=== PATIENT | female | born 1935 | race Caucasian/White ===

== ENCOUNTER 2020-06-14 17:14 | Observation (INO) | payer MEDICARE ==
--- NOTE | 2020-06-14 17:45 | RAD ---
RADIOGRAPH CHEST 1 VIEW: DATE: 06/14/2020 HISTORY: 85-year-old female with chest pain FINDINGS: There are no airspace densities, pulmonary edema, pneumothorax, or cardiomegaly. The lateral costophr enic angles are sharp. IMPRESSION: No acute cardiopulmonary findings.
[2020-06-14 17:55] LABS: #Eosinphils 0.1 thou/uL (0.0-0.7); #Lymphocytes 1.2 thou/uL (1.20-3.40); #Monocytes 0.9 thou/uL (0.11-0.59); #Neutrophils 6.8 thou/uL (1.40-6.50); %Basophils 0.5 % (0.0-1.0); %Lymphocytes 12.9 % (21.0-51.0); %Monocytes 10.4 % (0.0-10.0); %Neutrophils 75.2 % (42.0-75.0); Hemoglobin 11.6 g/dL (12.0-16.0); Mean Corpuscular HGB CONC 33.6 g/dL (32.0-36.0); Mean Corpuscular Hemoglobin 35.2 pg (27.0-31.0); Mean Platelet Volume 8.2 fL (7.4-10.4); Platelet Count 237 thou/uL (130-400); RBC Distribution Width 11.6 % (11.5-14.5)
[2020-06-14 18:16] LABS: ALT (SGPT) 86 U/L (8-55); AST (SGOT) 62 U/L (5-34); Albumin 4.1 g/dL (3.4-4.8); Alkaline Phosphatase 186 U/L (40-110); Anion Gap 16 mmol/L (10-20); BUN (Urea Nitrogen) 39 mg/dL (9.8-20.1); Bilirubin, Total 0.6 mg/dL (0.2-1.2); CK (CPK) 153 U/L (29-168); Calc. Creatinine Clearance 0 mL/min (70-130); Calcium 9.6 mg/dL (7.8-10.44); Carbon Dioxide 24 mmol/L (23-31); Chloride 107 mmol/L (98-107); Globulin 3.2 g/dL (2.4-3.5); Glucose 89 mg/dL (83-110); Lipase 111 U/L (8-78); Potassium 3.3 mmol/L (3.5-5.1); Protein, Total 7.3 g/dL (5.8-8.1); Sodium 144 mmol/L (136-145)
[2020-06-14 18:38] LABS: CKMB 1.8 ng/mL (0-6.6)
--- NOTE | 2020-06-14 19:07 | PDOC.FPRHP ---
- History of Present Illness Chief Complaint: chest pain History of Present Illness: Pt is a 85 yo F with PMH of dementia, CAD, HTN who presents to the ED from [facility] for CP. History is limited given the fact that patient is demented and A&Ox1 at baseline. She states she had CP this morning and "that it was not that bad." And she is "doing quite alright now". She denies any associated symptoms but did tell EMS that she had pain all over her body. Denies SILVEIRA, vision changes, SOB, abdominal pain, edema, fevers. ED Course: ASA 325mg Trop .074 EKG NSR, Neg for ST changes CXR neg - Allergies/Adverse Reactions Allergies Allergy/AdvReac Type Severity Reaction Status Date / Time No Known Drug Allergies Allergy Unverified 06/14/20 22:17 - History PMHx: Dementia, CAD, HTN PSHx: unknown FHx: unknown Social: unknown - Review of Systems ROS unobtainable: due to mental status (ROS negative, although questionable answers given demented state) - Vital signs BP: 158/53 HR: 72 RR: 16 Tmax: 98.2 Pox: 96% on RA Wt: 77kg - Physical Exam Constitutional: NAD HEENT: normocephalic and atraumatic, PERRLA, EOMI Neck: supple Heart: RRR, normal S1/S2, other (trace edema b/l) Lungs: CTAB, no respiratory distress Abdomen: soft, non-tender, bowel sounds present Musculoskeletal: normal tone, ROM grossly normal Neurological: no focal deficit Skin: capillary refill <2 seconds, no jaundice -Skin: bruising on abdomen 2/2 Lovenox injections -Psychiatric: A&Ox0 FMR H&P: Results - Labs Result Diagrams: 06/15/20 03:57 06/15/20 03:57 Lab results: WBC 9.0 thou/uL (4.8-10.8) 06/14/20 17:44 Hgb 11.6 g/dL (12.0-16.0) L 06/14/20 17:44 Hct 34.6 % (36.0-47.0) L 06/14/20 17:44 MCV 105.0 fL (78.0-98.0) H 06/14/20 17:44 Plt Count 237 thou/uL (130-400) 06/14/20 17:44 Neutrophils % 75.2 % (42.0-75.0) H 06/14/20 17:44 Sodium 144 mmol/L (136-145) 06/14/20 17:44 Potassium 3.3 mmol/L (3.5-5.1) L 06/14/20 17:44 Chloride 107 mmol/L (98-107) 06/14/20 17:44 Carbon Dioxide 24 mmol/L (23-31) 06/14/20 17:44 BUN 39 mg/dL (9.8-20.1) H 06/14/20 17:44 Creatinine 1.48 mg/dL (0.6-1.1) H 06/14/20 17:44 Glucose 89 mg/dL (83-110) 06/14/20 17:44 Calcium 9.6 mg/dL (7.8-10.44) 06/14/20 17:44 Total Bilirubin 0.6 mg/dL (0.2-1.2) 06/14/20 17:44 AST 62 U/L (5-34) H 06/14/20 17:44 ALT 86 U/L (8-55) H 06/14/20 17:44 Alkaline Phosphatase 186 U/L (40-110) H 06/14/20 17:44 Creatine Kinase 153 U/L (29-168) 06/14/20 17:44 CK-MB (CK-2) 1.8 ng/mL (0-6.6) 06/14/20 17:44 Serum Total Protein 7.3 g/dL (5.8-8.1) 06/14/20 17:44 Albumin 4.1 g/dL (3.4-4.8) 06/14/20 17:44 Lipase 111 U/L (8-78) H 06/14/20 17:44 - EKG Interpretation EKG: NSR, negative for ST changes FMR H&P: A/P - Plan Chest pain ACS rule out -patient with reports of CP at [facility] earlier today although history is blurry -history of CAD, but no history found suggestive of previous [place] or TIA/stroke -Troponin indeterminate in ED to .074, continue to trend -EKG was NSR with no evidence of ST changes, CXR neg -will discuss with patient's family in AM their desires for patient care and if they would want to pursue further testing such as echo, stress, risk stratification labs given patient's poor prognosis with dementia -continue with medical management -Nitro PRN CAD -aware, continue home meds Macrocytic Anemia -MCV >100, Hgb 11.6 -follow up folate/B12 Elevated Cr -SUMA vs CKD, unsure given no past labs to compare to -will give gentle fluids as patient is NPO -follow up CMP in morning, urine studies Elevated Lipase -aware, no abdominal pain or clinical symptoms c/w pancreatitis at this time -follow up AM labs Elevated LFTs -aware, no abdominal pain -follow up AM labs Dementia -aware, continue home meds HTN -aware, continue home meds Dispo: admit to tele, obs. anticipated LOS <48 hours. Call patient's family in morning Code: FULL as per advance directive on paperwork from [place] Fluids: LR @ 75mL/hr Diet: NPO pending possible cardiac workup dependent on trended trops DVT ppx: home Lovenox PCP Roz Attending: Dominic ASTORGA H&P: Upper Level - Plan Date/Time: 06/14/201906 ITj, , have evaluated this patient and agree with findings/plan as outlined by post graduate intern resident. Pertinent changes/additions are listed here. This is an 85 yo female with a pmh of Alzeihmer dementia, HTN, CAD who presents to the ER from the [facility] with a cc of chest pain. She is pleasantly demented at this time and is unsure as to why she is here. ROS is grossly negative with the caveat that she is AAOx0. Objective: Vitals: BP 167/51, HR 76, RR 15, Temp 98.2, SpO2 95% on ra, Wt 77kg. NAD, MMM, no JVD, heart is RRR with no murmurs, there is pain to palpation of the left upper chest wall, lungs are CTAB, Abdomen has bruising consistent with lovenox injections, BS+, Trace non-pitting edema in bilateral extremities. A/P ACS r/o Trop 0.074, will trend, CXR WNL, EKG shows NSR without ST changes, likely medical management after tele obs overnight. Elevated lipase of 111, will repeat in the AM, no abdominal pain consistent with pancreatitis. SUMA vs CKD IIIb will provide gentle hydration. Mild LFT elevation. Please see post graduate intern note for further information and management of chronic conditions. Addendum - Attending - Attending Attestation Date/Time: 06/15/20 1011 I personally evaluated the patient and discussed the management with Dr. Lisa on 06/14. I agree with the History, Examination, Assessment and Plan documented above with any addition or exceptions noted below. Patient with absolute 0 complaints or memory of complaints on my evaluation. Her ECG is unremarkable and her TnI is stable. Will defer stress as we need to discuss goals of care with the family in the morning.
[2020-06-14] MEDS ORDERED: Aspirin Chewable 81 MG TAB ONE (19:13)
[2020-06-14 21:54] LABS: Troponin I 0.067 ng/mL (< 0.028)
[2020-06-14] MEDS ORDERED: Nitroglycerin 0.4 MG TAB (25 Tab Bottle) SL PRN (22:00)
[2020-06-14] MEDS ORDERED: Acetaminophen 325 MG TAB PO PRN (22:00)
[2020-06-14] MEDS ORDERED: Ondansetron PF 4 MG/2 ML Vial IVP PRN (22:00)
[2020-06-14] MEDS ORDERED: Potassium Chloride 20 MEQ TAB PO SCH (22:30)
[2020-06-14] MEDS ORDERED: Lactated Ringer's 1,000 ML IV SCH (22:30)
[2020-06-14] MEDS ORDERED: Potassium Chloride 20 MEQ TAB ONE (22:40)
[2020-06-14] MEDS ORDERED: Famotidine 20 MG TAB PO PRN (23:14)
[2020-06-14] MEDS ORDERED: Donepezil HCl 10 MG TAB PO SCH (23:30)
[2020-06-15 01:10] LABS: Troponin I 0.083 ng/mL (< 0.028)
[2020-06-15 02:58] LABS: SARS-CoV-2 PCR by NAA Not Detected (NotDetected)
[2020-06-15 04:16] LABS: #Eosinphils 0.2 thou/uL (0.0-0.7); #Lymphocytes 1.4 thou/uL (1.20-3.40); #Monocytes 0.9 thou/uL (0.11-0.59); #Neutrophils 4.5 thou/uL (1.40-6.50); %Basophils 0.4 % (0.0-1.0); %Eosinophils 2.7 % (0.0-10.0); %Lymphocytes 20.2 % (21.0-51.0); %Monocytes 12.3 % (0.0-10.0); %Neutrophils 64.3 % (42.0-75.0); Hemoglobin 10.4 g/dL (12.0-16.0); Mean Corpuscular HGB CONC 33.3 g/dL (32.0-36.0); Mean Corpuscular Hemoglobin 34.8 pg (27.0-31.0); Mean Platelet Volume 8.3 fL (7.4-10.4); Platelet Count 211 thou/uL (130-400); RBC Distribution Width 11.4 % (11.5-14.5); Red Blood Cell (RBC) Count 2.99 mill/uL (4.20-5.40)
[2020-06-15 04:42] LABS: ALT (SGPT) 76 U/L (8-55); AST (SGOT) 58 U/L (5-34); Albumin 3.4 g/dL (3.4-4.8); Alkaline Phosphatase 155 U/L (40-110); Anion Gap 13 mmol/L (10-20); BUN (Urea Nitrogen) 40 mg/dL (9.8-20.1); Bilirubin, Total 0.7 mg/dL (0.2-1.2); Calc. Creatinine Clearance 0 mL/min (70-130); Calcium 8.7 mg/dL (7.8-10.44); Carbon Dioxide 24 mmol/L (23-31); Chloride 107 mmol/L (98-107); Globulin 2.7 g/dL (2.4-3.5); Glucose 75 mg/dL (83-110); Lipase 84 U/L (8-78); Potassium 3.4 mmol/L (3.5-5.1); Protein, Total 6.1 g/dL (5.8-8.1); Sodium 141 mmol/L (136-145)
[2020-06-15] MEDS ORDERED: Potassium Chloride 20 MEQ TAB PO SCH (05:45)
--- NOTE | 2020-06-15 05:47 | PDOC.FM ---
- Subjective Subjective: Patient pleasantly demented, A&OX1, denies pain or other acute concerns. - Objective MAR Reviewed: Yes Result Diagrams: 06/15/20 03:57 06/15/20 03:57 Phys Exam - Physical Examination Constitutional: NAD Respiratory: no wheezing, no rales, no rhonchi, clear to auscultation bilateral Cardiovascular: RRR, no significant murmur, no rub Gastrointestinal: soft, non-tender, no distention, positive bowel sounds Dx/Plan - Plan Plan: Chest pain ACS rule out -patient with reports of CP at [facility] earlier today although history is blurry -history of CAD, but no history found suggestive of previous [place] or TIA/stroke -EKG was NSR with no evidence of ST changes, CXR neg -will discuss with patient's family in AM their desires for patient care and if they would want to pursue further testing such as echo, stress, risk stratification labs given patient's poor prognosis with dementia -continue with medical management -Nitro PRN -Troponin stable, 0.074 -> 0.083 CAD -aware, continue home meds Macrocytic Anemia -MCV >100, Hgb 11.6 -Normal folate and B12 Elevated Cr -SUMA vs CKD, unsure given no past labs to compare to -Improving SCr this AM on labs Elevated Lipase -aware, no abdominal pain or clinical symptoms c/w pancreatitis at this time - Downtrending this AM Elevated LFTs -aware, no abdominal pain -follow up AM labs Dementia -aware, continue home meds HTN -aware, continue home meds Dispo: admitted to tele, obs. anticipated LOS <48 hours. Will call patient's family to discuss tx plans. Likely DC today. Code: FULL as per advance directive on paperwork from [place] Fluids: LR @ 75mL/hr Diet: NPO pending possible cardiac workup vs possible pancreatitis DVT ppx: home Lovenox PCP Roz Attending: Dominic Addendum - Attending - Attending Attestation Date/Time: 06/15/20 4523 I personally evaluated the patient and discussed the management with Dr. Mendes. I agree with the History, Examination, Assessment and Plan documented above with any addition or exceptions noted below. She remains pleasantly demented and asymptomatic. Discuss with family today.
[2020-06-15] MEDS ORDERED: Potassium Chloride 20 MEQ TAB ONE (08:19)
[2020-06-15] MEDS ORDERED: Enoxaparin Sodium 30 MG/0.3 ML SYRINGE ONE (08:54)
[2020-06-15] MEDS ORDERED: Metoprolol Tartrate 50 MG TAB ONE (08:54)
[2020-06-15] MEDS ORDERED: Aspirin Chewable 81 MG TAB ONE (08:54)
[2020-06-15] MEDS ORDERED: Enoxaparin Sodium 40 MG/0.4 ML SYRINGE SC SCH (09:00)
[2020-06-15] MEDS ORDERED: Losartan 25 MG TAB PO SCH (09:00)
[2020-06-15] MEDS ORDERED: Aspirin 81 mg Enteric Coated Tablet PO SCH (09:00)
[2020-06-15] MEDS ORDERED: Enoxaparin Sodium 30 MG/0.3 ML SYRINGE SC SCH (09:00)
[2020-06-15] MEDS ORDERED: hydrALAZINE 25 MG TAB PO SCH (09:00)
[2020-06-15] MEDS ORDERED: Clonidine Hcl [Clonidine Hcl Er] 0.1 MG Tab.Er.12h PO SCH (09:00)
[2020-06-15 10:11] VITALS: BP 158/64
[2020-06-15] MEDS ORDERED: Donepezil HCl 10 MG TAB PO SCH (21:00)
[2020-06-16] MEDS ORDERED: cloNIDine 0.1 MG TAB PO PRN (13:08)
--- NOTE | 2020-06-17 07:24 | DIS ---
DATE OF ADMISSION: 06/14/2020 DATE OF DISCHARGE: 06/15/2020 RESIDENT: Rudi Mendes MD. ADMITTING ATTENDING: Dr. Alfaro. DISCHARGE ATTENDING: Dr. Alfaro. CONSULTS: None. PROCEDURES: Chest x-ray showing no acute intrathoracic process. PRIMARY DIAGNOSIS: ACS rule out. SECONDARY DIAGNOSES: 1. Coronary artery disease, macrocytic anemia. 2. Acute kidney injury. 3. Elevated lipase. 4. Elevated LFT. 5. Dementia. 6. Hypertension. DISCHARGE MEDICATIONS: Unchanged from home medications; 1. Aspirin 81 mg p.o. daily. 2. Clonidine 0.1 mg p.o. q.12 hours. 3. Aricept 10 mg p.o. at bedtime. 4. Pepcid 20 mg p.o. b.i.d. 5. Hydralazine 25 mg p.o. t.i.d. 6. Losartan 50 mg p.o. b.i.d. 7. Memantine 10 mg p.o. daily. 8. Metoprolol 50 mg p.o. daily. 9. Seroquel 25 mg p.o. at bedtime. HISTORY OF PRESENT ILLNESS/HOSPITAL COURSE: The patient is an 85-year-old female who presents to the ED with reports of chest pain. At baseline, the patient has dementia and is A and O x1. Initially it was thought the patient had a history of coronary artery disease. Initial troponins were indeterminate, but stable. The patient denied chest pain on repeat examinations. The patient was observed overnight. I was able to contact her daughter, who informed me that the patient had no history of coronary artery disease and had been through this workup multiple times before with unremarkable results. At this time, I had discussion with daughter about further workup including next steps being stress test and possible catheterization. Discussed risks and benefits of both and decided with daughter's approval, given unremarkable history and unremarkable repeat exams, to discharge the patient back to jail at [place]. DISPOSITION: Stable. DISCHARGE INSTRUCTIONS: 1. Location: Returned to [place]. 2. Diet: Heart healthy. 3. Activity: As tolerated. 4. Followup: Please follow up with primary care physician, Dr. Courtney within 2 weeks. Blood pressure was persistently elevated in the emergency room, however, medications were not given on normal schedule. Will need repeat evaluation. Job ID: [id number]
== END 2020-06-15 15:04 ==
LOC: ERS 17:14 → ERHOLD 19:01
PROVIDERS: ADMIT Emergency Medicine; ATTEND Family Medicine
DX: R07.9 Chest pain, unspecified (principal); G30.9 Alzheimer's disease, unspecified; F02.80 Dementia in other diseases classified elsewhere, unspecified severity, without behavioral disturbance, psychotic disturbance, mood disturbance, and anxiety; I25.10 Atherosclerotic heart disease of native coronary artery without angina pectoris; D53.9 Nutritional anemia, unspecified; N17.9 Acute kidney failure, unspecified; R79.89 Other specified abnormal findings of blood chemistry; I10 Essential (primary) hypertension; Z79.82 Long term (current) use of aspirin; Z79.899 Other long term (current) drug therapy; Z20.822 Contact with and (suspected) exposure to COVID-19
CPT/HCPCS: 71045; 80053 ×2; 82550; 82553; 82607; 82746; 83690 ×2; 83735; 84484 ×3; 85025 ×2; 93005; 99285; U0003; U0005; 36415; 87635; J1650

== ENCOUNTER 2020-06-16 03:13 | Emergency (ER) | payer MEDICARE ==
--- NOTE | 2020-06-16 08:33 | CT ---
PRELIMINARY REPORT/[facility]/EMERGENCY AFTER HOURS PROCEDURE EXAM: CT Abdomen and Pelvis Without Intravenous Contrast CLINICAL HISTORY: HX OF ALZHEIMERS - BASELINE OF AOX1 FELL OUT OF BED - FOUND ON FLOOR AT 1 AM. BRUISING TO LEFT HIP, COMPLAINS OF FULL BODY PAIN. TECHNIQUE: Axial computed tomography images of the abdomen and pelvis without intravenous contrast. CONTRAST: None. COMPARISON: None provided. FINDINGS: LUNG BASES: No basilar airspace consolidation or pleural effusion. LIVER: There are multiple cystic lesions in the liver, with the largest one measuring up to 4.5 cm in the le ft hepatic lobe. GALLBLADDER AND BILE DUCTS: The gallbladder has been surgically removed. PANCREAS: Unremarkable. SPLEEN: Unremarkable. ADRENAL GLANDS: Unremarkable. KIDNEYS, URETERS, AND BLADDER: Unremarkable. No hydronephrosis or nephrolithiasis. No ureteral or bladder calculi. STOMACH AND BOWEL: There is a mild circumferential wall thickening of the visualized distal esophagus, questionable due to inflammation. APPENDIX: No CT evidence for appendicitis. PERITONEUM: No free fluid. No free air. LYMPH NODES: No lymphadenopathy. REPRODUCTIVE: The patient has had a hysterectomy. VASCULATURE: No aortic aneurysm. ABDOMINAL WALL AND SOFT TISSUES: Unremarkable. BONES: No fracture or suspicious osseous abnormality. IMPRESSION: 1. There is a mild circumferential wall thickening of the visualized distal esophagus, questionable d ue to inflammation. 2. The gallbladder has been surgically removed. 3. The patient has had a hysterectomy. 4. There are multiple cystic lesions in the liver, with the largest one measuring up to 4.5 cm in the left hepatic lobe. ELECTRONICALLY SIGNED BY: Halina Marin MD Jun 16, 2020 5:22:40 AM ASSISTANT PURCHASING MANAGER This report is intended for review by the ordering physician only, in accordance of law. If you recei ve this report in error, please call [facility] at [phone]. FINAL REPORT Exam: Abdomen CT without contrast Pelvic CT without contrast HISTORY: Trauma. Fall. Pain. COMPARISON: None FINDINGS: Abdomen CT: Lung bases:Chronic changes Heart size: Upper normal heart size. No significant pericardial fluid Aorta: Atherosclerosis. Solid organs: Limited evaluation by the absence of IV contrast. Hepatic cysts are noted. No posttraum atic changes in the solid organs Lymph nodes: No gastrohepatic, retrocrural or periportal lymphadenopathy Gallbladder: Surgically absent Mesentery: No mass, lymphadenopathy, free air or free fluid Kidneys: Bilaterally, no hydronephrosis, nephrolithiasis or perinephric fat stranding. Bilateral uret ers have a normal caliber. No hydroureter, periureteral fat stranding or ureterolithiasis. Alimentary canal: Limited evaluation by the lack of oral contrast. No bowel obstruction. Diverticulos is, without evidence of diverticulitis. CT PELVIS: No mass, adenopathy, free air or free fluid. Surgically absent uterus Urinary bladder: Unremarkable. Osseous structures: No lytic or blastic lesions IMPRESSION: 1. This report is in agreement with initial report by [facility]. 2. No posttraumatic changes in the abdomen or pelvis. 3. Additional findings as detailed in the initial report by [facility]. Transcribed Date/Time: 06/16/2020 8:44 AM
--- NOTE | 2020-06-16 08:35 | CT ---
PRELIMINARY REPORT/[facility]/EMERGENCY AFTER HOURS PROCEDURE: EXAM: CT Cervical Spine Without Intravenous Contrast. CLINICAL HISTORY: HX OF ALZHEIMERS - BASELINE OF AOX1 FELL OUT OF BED - FOUND ON FLOOR AT 1 AM. BRUISING TO LEFT HIP, COMPLAINS OF FULL BODY PAIN. TECHNIQUE: Axial computed tomography images of the cervical spine without intravenous contrast. Sagittal and cor onal reformations performed. COMPARISON: None provided. FINDINGS: BONES: No acute fracture or focal osseous lesion. Bony alignment is anatomic. DISCS / DEGENERATIVE CHANGES: There is a mild to moderate disc space narrowing from C3-C7 with bilateral uncovertebral joint hypert rophy and facet arthropathy, causing mild to moderate central spinal canal stenosis and neuroforamina l narrowing. SOFT TISSUES: No prevertebral soft tissue swelling. No apical pneumothorax. IMPRESSION: There is a mild to moderate disc space narrowing from C3-C7 with bilateral uncovertebral joint hypert rophy and facet arthropathy, causing mild to moderate central spinal canal stenosis and neuroforamina l narrowing. ELECTRONICALLY SIGNED BY: Halina Marin MD Jun 16, 2020 5:18:37 AM ELEMENTARY ASSISTANT TEACHER This report is intended for review by the ordering physician only, in accordance of law. If you recei ve this report in error, please call [facility] at [phone]. FINAL REPORT EMERGENCY AFTER HOURS CT CERVICAL SPINE WITHOUT CONTRAST: FINDINGS/IMPRESSION: I agree with the findings and impression given in the preliminary report per [facility] physici an. There are degenerative changes in the cervical spine without acute osseous abnormality. POS: ANDERA
--- NOTE | 2020-06-16 08:36 | CT ---
PRELIMINARY REPORT/[facility]/EMERGENCY AFTER HOURS PROCEDURE: EXAM: CT Head Without Intravenous Contrast. CLINICAL HISTORY: HX OF ALZHEIMERS - BASELINE OF AOX1 FELL OUT OF BED - FOUND ON FLOOR AT 1 AM. BRUISING TO LEFT HIP, COMPLAINS OF FULL BODY PAIN. TECHNIQUE: Axial computed tomography images of the head/brain without intravenous contrast. COMPARISON: None provided. FINDINGS: BRAIN: No acute intraparenchymal hemorrhage. No mass lesion. No CT evidence for acute territorial infarct. N o midline shift or extra-axial collection. 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 There is a mild age appropriate brain atrophy with mild periventricular white matter disease. VENTRICLES: No hydrocephalus. ORBITS: The orbits are unremarkable. SINUSES AND MASTOIDS: The patient has a chronic left maxillary sinusitis. SOFT TISSUES: No significant facial or scalp soft tissue swelling evident. No radiopaque foreign body is seen. BONES: No acute skull fracture. IMPRESSION: No acute intracranial abnormality. ELECTRONICALLY SIGNED BY: Halina Marin MD Jun 16, 2020 5:16:21 AM REPAIR MANAGER This report is intended for review by the ordering physician only, in accordance of law. If you recei ve this report in error, please call [facility] at [phone]. FINAL REPORT EMERGENCY AFTER HOURS CT BRAIN WITHOUT CONTRAST: FINDINGS/IMPRESSION: I agree with the findings and impression given in the preliminary report per [facility] physici an. No evidence of acute intracranial abnormality. POS: ANDERA
== END 2020-06-16 06:40 ==
LOC: ERS 03:13
DX: M25.552 Pain in left hip (principal); I10 Essential (primary) hypertension; Z79.82 Long term (current) use of aspirin; Z79.899 Other long term (current) drug therapy; W06.XXXA Fall from bed, initial encounter
CPT/HCPCS: 70450; 72125; 74176